=== PATIENT | female | born 1945 | race Caucasian/White ===

== ENCOUNTER 2019-12-13 17:54 | Emergency (ER) | payer MEDICARE, BC ==
[2019-12-13 18:12] VITALS: BP 143/89; PULSE 107
[2019-12-13] MEDS ORDERED: Lidocaine 1% 30 ML SDV INJECT ONE (18:12)
[2019-12-13] MEDS ORDERED: Bacitracin Oint 1 GM U/D Packet TOP ONE ×2 (18:12→19:10)
[2019-12-13] MEDS ORDERED: Diphtheria,Pertussis(Acell),Tetanus Vaccine 0.5 ML SDV IM ONE (18:13)
--- NOTE | 2019-12-13 18:20 | EDM.PDOC ---
ED HPI GENERAL MEDICAL PROBLEM - General Chief Complaint: Bite:Animal, Insect Stated Complaint: DOG ATTACKED LEFT LEFT CALF AND ANKLE Time Seen by Provider: 12/13/19 18:10 Source of Information: Reports: Patient, RN, RN Notes Reviewed History Limitations: Reports: No Limitations - History of Present Illness INITIAL COMMENTS - FREE TEXT/NARRATIVE: Patient presents to ER with complaint of laceration from dog bite to the left lower leg. Patient states she was mowing her yard in her own yard and the neighbors dog attacked her, unprovoked. Neighbor states the dog is up-to-date on its rabies vaccinations. Patient states she is probably not up-to-date on her tetanus vaccination. Patient has 2 lacerations to the inner left calf, and a puncture and laceration to the outer left calf. Onset: Today, Sudden Right Lower Leg Pain Score (Numeric/FACES): 5 - Related Data Allergies Allergy/AdvReac Type Severity Reaction Status Date / Time clarithromycin Allergy Other Verified 12/13/19 18:12 diphenhydramine Allergy Other Verified 12/13/19 18:12 pseudoephedrine Allergy Other Verified 12/13/19 18:12 [id number] Allergy Other Uncoded 12/13/19 18:12 Home Meds: Home Meds Albuterol [Proair HFA] 8.5 gm IH Q6HR PRN 07/06/14 [History] Ibuprofen 600 mg PO Q6HR PRN 07/06/14 [History] Levothyroxine 125 mcg PO DAILY 07/06/14 [History] Triamcinolone Acetonide [Triamcinolone Acetonide 0.5% Oint] 15 gm TOP DAILY 07/06/14 [History] amLODIPine/Benazepril [Lotrel 5-20 MG] 1 tab PO DAILY 07/06/14 [History] Social & Family History - Tobacco Use Smoking Status *Q: Never Smoker Second Hand Smoke Exposure: No - Recreational Drug Use Recreational Drug Use: No ED ROS GENERAL - Review of Systems Review Of Systems: Comprehensive ROS is negative, except as noted in HPI. ED EXAM, ANIMAL BITE - Physical Exam Exam: See Below Exam Limited By: No Limitations General Appearance: Alert, WD/WN, Anxious, Mild Distress Eye Exam: Bilateral Eye: EOMI, Normal Inspection Ears: Normal External Exam, Hearing Grossly Normal Nose: Normal Inspection Throat/Mouth: Normal Inspection, Normal Voice, No Airway Compromise Head: Atraumatic, Normocephalic Neck: Normal Inspection, Supple, Non-Tender, Full Range of Motion Respiratory/Chest: No Respiratory Distress, Lungs Clear, Normal Breath Sounds, No Accessory Muscle Use, Chest Non-Tender Cardiovascular: Normal Peripheral Pulses, Regular Rate, Rhythm, No Edema, No Gallop, No JVD, No Murmur, No Rub GI/Abdominal: Normal Bowel Sounds, Soft, Non-Tender (Female) Exam: Deferred Rectal (Female) Exam: Deferred Back Exam: Normal Inspection, Full Range of Motion, NT Extremities: Normal Inspection, Normal Range of Motion, Non-Tender, Normal Capillary Refill, No Pedal Edema Neurological: Alert, Oriented, CN II-XII Intact, Normal Cognition, Normal Gait, Normal Reflexes, No Motor/Sensory Deficits Psychiatric: Normal Affect, Normal Mood, Anxious Skin Exam: Other (lacerations and puncture wounds to the left inner and outer calf; Left lower lateral calf 5.5cm; Below that 3.5cm; Lateral ankle area 1cm; Left medial calf 6cm superficial laceration with 1cm area needing suture; Left medial calf 1cm puncutre; Left medial ankle 1.5cm puncture needing suture; small puncture to inner ankle not needing suture. ) Lymphadenopathy: Bilateral: No Adenopathy Lymphatic: No Adenopathy ED ANIMAL BITE PROCEDURES - Laceration/Wound Repair Left Lower Leg Lac/Wound Length In cm: 5.5 Appearance: Subcutaneous Distal NVT: Neuro & Vascular Intact Anesthetic Type: Local Local Anesthesia - Lidocaine (Xylocaine): 1% Plain Local Anesthetic Volume: 5cc Skin Prep: Chlorhexidine (Hibiciens) Exploration/Debridement/Repair: Wound Explored, In a Bloodless Field, Explored to Base, No Foreign Material Found Closed With: Sutures Suture Size: 4-0 # of Sutures: 7 Suture Type: Nylon, Interrupted Drain Placement: No Sterile Dressing Applied: Provider Tetanus Status Addressed: Yes Complications: No Left Lower Lateral Leg Lac/Wound Length In cm: 3.5 Appearance: Subcutaneous Anesthetic Type: Local Local Anesthesia - Lidocaine (Xylocaine): 1% Plain Local Anesthetic Volume: 4cc Skin Prep: Chlorhexidine (Hibiciens) Exploration/Debridement/Repair: Wound Explored, In a Bloodless Field, Explored to Base, No Foreign Material Found Closed With: Sutures Suture Size: 4-0 # of Sutures: 5 Suture Type: Nylon, Interrupted Drain Placement: No Sterile Dressing Applied: Provider Tetanus Status Addressed: Yes Complications: No Left Lower Side Ankle Lac/Wound Length In cm: 1 Appearance: Subcutaneous Distal NVT: Neuro & Vascular Intact Anesthetic Type: Local Local Anesthesia - Lidocaine (Xylocaine): 1% Plain Local Anesthetic Volume: 2cc Skin Prep: Chlorhexidine (Hibiciens) Exploration/Debridement/Repair: Wound Explored, In a Bloodless Field, Explored to Base, No Foreign Material Found Closed With: Sutures Suture Size: 4-0 # of Sutures: 2 Suture Type: Nylon, Interrupted Drain Placement: No Sterile Dressing Applied: Provider Tetanus Status Addressed: Yes Complications: No Left Lower Medial Leg Lac/Wound Length In cm: 1 Appearance: Subcutaneous Anesthetic Type: Local Local Anesthesia - Lidocaine (Xylocaine): 1% Plain Local Anesthetic Volume: 2cc Skin Prep: Chlorhexidine (Hibiciens) Exploration/Debridement/Repair: Wound Explored, In a Bloodless Field, Explored to Base, No Foreign Material Found Suture Size: 4-0 # of Sutures: 2 Suture Type: Nylon, Interrupted Drain Placement: No Sterile Dressing Applied: Provider Tetanus Status Addressed: Yes Complications: No Left Lower Side Leg Lac/Wound Length In cm: 1 Appearance: Subcutaneous Distal NVT: Neuro & Vascular Intact Anesthetic Type: Digital Local Anesthesia - Lidocaine (Xylocaine): 1% Plain Local Anesthetic Volume: 2cc Skin Prep: Chlorhexidine (Hibiciens) Exploration/Debridement/Repair: Wound Explored, In a Bloodless Field, Explored to Base, No Foreign Material Found Closed With: Sutures Suture Size: 4-0 # of Sutures: 1 Drain Placement: No Sterile Dressing Applied: Provider Tetanus Status Addressed: Yes Complications: No Left Lower Medial Ankle Lac/Wound Length In cm: 1.5 Appearance: Subcutaneous Distal NVT: Neuro & Vascular Intact Anesthetic Type: Local Local Anesthesia - Lidocaine (Xylocaine): 1% Plain Local Anesthetic Volume: 2cc Skin Prep: Chlorhexidine (Hibiciens) Exploration/Debridement/Repair: Wound Explored, In a Bloodless Field, Explored to Base, No Foreign Material Found Closed With: Sutures Suture Size: 4-0 # of Sutures: 2 Suture Type: Nylon, Interrupted Drain Placement: No Sterile Dressing Applied: Provider Tetanus Status Addressed: Yes Complications: No Course - Vital Signs Last Recorded V/S: Last Vital Signs Temp 97.7 F 12/13/19 18:07 Pulse 107 H 12/13/19 18:07 Resp 18 12/13/19 18:07 BP 143/89 H 12/13/19 18:07 Pulse Ox 93 L 12/13/19 18:07 - Orders/Labs/Meds Orders: Active Orders 24 hr Category Date Time Status Vaccines to be Administered [RC] PER UNIT ROUTINE Care 12/13/19 18:13 Active Meds: Medications Discontinued Medications Generic Name Dose Route Start Last Admin Trade Name Alessandra PRN Reason Stop Dose Admin Bacitracin 3 dose 12/13/19 18:12 12/13/19 18:24 Bacitracin Oint 1 Gm TOP 12/13/19 18:13 3 dose ONETIME ONE Administration Bacitracin 1 dose 12/13/19 19:10 12/13/19 19:15 Bacitracin Oint 1 Gm TOP 12/13/19 19:11 1 dose ONETIME ONE Administration Diphtheria/Tetanus/Acell Pertussis 0.5 ml 12/13/19 18:13 12/13/19 18:23 Adacel IM 12/13/19 18:14 0.5 ml .ONCE ONE Administration Lidocaine HCl 30 ml 12/13/19 18:12 12/13/19 18:23 Xylocaine-Mpf 1% INJECT 12/13/19 18:13 30 ml ONETIME ONE Administration - Re-Assessments/Exams Free Text/Narrative Re-Assessment/Exam: 12/13/19 19:24 [employer] officer here to visit with the patient. Departure - Departure Time of Disposition: 19:16 Disposition: Home, Self-Care 01 Condition: Fair Clinical Impression: Laceration, Puncture wound Dog bite Qualifiers: Encounter type: initial encounter Qualified Code(s): W54.0XXA - Bitten by dog, initial encounter - Discharge Information *PRESCRIPTION DRUG MONITORING PROGRAM REVIEWED*: No *COPY OF PRESCRIPTION DRUG MONITORING REPORT IN PATIENT GEORGE: No Instructions: Animal Bite, Adult, [id number], Puncture Wound, [id number], Laceration Care, Adult, [id number], Sutures, Mauro, or Adhesive Wound Closure, [id number] Forms: ED Department Discharge Additional Instructions: Keep area clean and dry Monitor for signs of infection i.e. warmth, redness, drainage, fever or chills Follow-up with your primary care provider in 7 to 10 days for suture removal Sepsis Event Note (ED) - Evaluation Sepsis Screening Result: No Definite Risk - Focused Exam Vital Signs: Vital Signs Temp Pulse Resp BP Pulse Ox 12/13/19 18:07 97.7 F 107 H 18 143/89 H 93 L - My Orders Last 24 Hours: My Active Orders 12/13/19 18:13 Vaccines to be Administered [RC] PER UNIT ROUTINE - Assessment/Plan Last 24 Hours: My Active Orders 12/13/19 18:13 Vaccines to be Administered [RC] PER UNIT ROUTINE
== END 2019-12-13 19:19 | disposition home or self-care (01) ==
LOC: DL.ED 17:54
DX: S91.052A Open bite, left ankle, initial encounter (principal); Z23 Encounter for immunization; Z88.1 Allergy status to other antibiotic agents; Z88.8 Allergy status to other drugs, medicaments and biological substances; Z79.899 Other long term (current) drug therapy; W54.0XXA Bitten by dog, initial encounter; Y92.096 Garden or yard of other non-institutional residence as the place of occurrence of the external cause
CPT/HCPCS: 12005; 90471; 90715; 99283; J2001

== ENCOUNTER 2019-12-20 15:00 | Emergency (ER) | payer MEDICARE, BC ==
[2019-12-20 15:23] VITALS: BP 151/91; PULSE 78
[2019-12-20] MEDS ORDERED: Levofloxacin 500 MG Tab PO ONE (15:49)
--- NOTE | 2019-12-20 16:11 | EDM.PDOC ---
Scribed by Missy Sanchez 12/20/19 1611 for Rolanda Sanchez MD ED HPI GENERAL MEDICAL PROBLEM - General Chief Complaint: Skin Complaint Stated Complaint: FOLLOW TO A DOG BITE, LEFT LEG Time Seen by Provider: 12/20/19 15:36 Source of Information: Reports: Patient, RN, RN Notes Reviewed History Limitations: Reports: No Limitations - History of Present Illness INITIAL COMMENTS - FREE TEXT/NARRATIVE: Patient presents to ED by POV stating she had a dog bite last week and had 19 stitches. She was not put on antibiotics originally. On Saturday she started having swelling, worse on Saturday and Saturday she went to clinic and got antibiotics and pain medication of Keflex and Clindamycin. On Saturday she was better so she showered. On Saturday she noticed drainage and dehiscence. Redness better but drainage. Onset: Gradual Duration: Getting Worse Location: Reports: Lower Extremity, Left Quality: Reports: Ache Severity: Moderate Improves with: Reports: None Worsens with: Reports: None Associated Symptoms: Reports: No Other Symptoms Left Lower Leg Pain Score (Numeric/FACES): 8 - Related Data Allergies Allergy/AdvReac Type Severity Reaction Status Date / Time clarithromycin Allergy Other Verified 12/20/19 15:23 diphenhydramine Allergy Other Verified 12/20/19 15:23 pseudoephedrine Allergy Other Verified 12/20/19 15:23 [id number] Allergy Other Uncoded 12/13/19 18:12 Home Meds: Home Meds Albuterol [Proair HFA] 8.5 gm IH Q6HR PRN 07/06/14 [History] Ibuprofen 600 mg PO Q6HR PRN 07/06/14 [History] Levothyroxine 125 mcg PO DAILY 07/06/14 [History] Triamcinolone Acetonide [Triamcinolone Acetonide 0.5% Oint] 15 gm TOP DAILY 06/20 12/01 [History] amLODIPine/Benazepril [Lotrel 5-20 MG] 1 tab PO DAILY 07/06/14 [History] Clindamycin HCl 300 mg PO QID 12/20/19 [History] cephALEXin [Cephalexin] 500 mg PO DAILY 12/20/19 [History] traMADol HCl [Tramadol HCl] 25 mg PO Q8H PRN 12/20/19 [History] Past Medical History Cardiovascular History: Reports: Hypertension Oncologic (Cancer) History: Reports: Renal, Thyroid - Past Surgical History Endocrine Surgical History: Reports: Thyroidectomy Oncologic Surgical History: Reports: Other (See Below) Other Oncologic Surgeries/Procedures: thyroidectomy, nephrectomy Social & Family History - Tobacco Use Smoking Status *Q: Never Smoker - Recreational Drug Use Recreational Drug Use: No ED ROS GENERAL - Review of Systems Review Of Systems: Comprehensive ROS is negative, except as noted in HPI. ED EXAM, SKIN/RASH Exam: See Below Exam Limited By: No Limitations General Appearance: Alert, WD/WN, No Apparent Distress Head: Atraumatic, Normocephalic Neck: Normal Inspection Respiratory/Chest: No Respiratory Distress, Lungs Clear, Normal Breath Sounds, No Accessory Muscle Use, Chest Non-Tender Cardiovascular: Normal Peripheral Pulses, Regular Rate, Rhythm, No Edema, No Gallop, No JVD, No Murmur, No Rub Extremities: Other (left extremity edema) Neurological: Alert, Oriented, CN II-XII Intact, Normal Cognition, Normal Gait, Normal Reflexes, No Motor/Sensory Deficits Psychiatric: Normal Affect, Normal Mood Skin: Other (dog bite with mild erythema and warmth. Wound dehiscence proximal innfer left leg. ) Course - Vital Signs Last Recorded V/S: Last Vital Signs Temp 97.8 F 12/20/19 15:20 Pulse 78 12/20/19 15:20 Resp 16 12/20/19 15:20 BP 151/91 H 12/20/19 15:20 Pulse Ox 99 12/20/19 15:20 - Orders/Labs/Meds Meds: Medications Discontinued Medications Generic Name Dose Route Start Last Admin Trade Name Alessandra PRN Reason Stop Dose Admin Levofloxacin 500 mg 12/20/19 15:49 Levaquin PO 12/20/19 15:50 ONETIME ONE - Re-Assessments/Exams Free Text/Narrative Re-Assessment/Exam: The wound was cleaned and removed bad stitches. Steri-Strip was applied after antibiotics cream. 12/20/19 16:10 Departure - Departure Time of Disposition: 16:00 Disposition: Home, Self-Care 01 Condition: Good Clinical Impression: Wound dehiscence Dog bite of left lower leg with infection Qualifiers: Encounter type: sequela Qualified Code(s): S81.852S - Open bite, left lower leg, sequela; L08.9 - Local infection of the skin and subcutaneous tissue, unspecified; W54.0XXS - Bitten by dog, sequela - Discharge Information *PRESCRIPTION DRUG MONITORING PROGRAM REVIEWED*: Not Applicable *COPY OF PRESCRIPTION DRUG MONITORING REPORT IN PATIENT GEORGE: Not Applicable Instructions: Animal Bite, Adult, [id number], Wound Dehiscence, [id number] Forms: ED Department Discharge Additional Instructions: RX: Levaquin. Follow up with primary care doctor tomorrow as previously scheduled. Sepsis Event Note (ED) - Evaluation Sepsis Screening Result: No Definite Risk - Focused Exam Vital Signs: Vital Signs Temp Pulse Resp BP Pulse Ox 12/20/19 15:20 97.8 F 78 16 151/91 H 99 I have read and agree with the documentation that has been completed regarding this visit. By signing this record, I attest that the documentation was completed in my physical presence and is an accurate record of the encounter.
== END 2019-12-20 16:18 | disposition home or self-care (01) ==
LOC: DL.ED 15:00
DX: T81.41XA Infection following a procedure, superficial incisional surgical site, initial encounter (principal); T81.30XA Disruption of wound, unspecified, initial encounter; I10 Essential (primary) hypertension; Z88.1 Allergy status to other antibiotic agents; Z88.8 Allergy status to other drugs, medicaments and biological substances; Z98.890 Other specified postprocedural states; W54.0XXS Bitten by dog, sequela
CPT/HCPCS: 99282; A9270

== ENCOUNTER 2020-02-13 11:48 | Emergency (ER) | payer MEDICARE, BC ==
[2020-02-13 12:58] VITALS: BP 144/83; PULSE 86
== END 2020-02-13 13:34 | disposition left against medical advice (07) ==
LOC: DL.ED 11:48
DX: Z53.21 Procedure and treatment not carried out due to patient leaving prior to being seen by health care provider (principal)

== ENCOUNTER 2020-09-03 15:01 | Emergency (ER) | payer MEDICARE, BC ==
[2020-09-03] MEDS ORDERED: Amoxicillin/Clavulanate K 875-125 MG Tab PO ONE (15:22)
[2020-09-03] MEDS ORDERED: Mupirocin Oint 22 GM Tube TOP ONE (15:23)
--- NOTE | 2020-09-03 15:29 | EDM.PDOC ---
ED HPI GENERAL MEDICAL PROBLEM - General Chief Complaint: Bite:Animal, Insect Stated Complaint: RIGHT HAND AND RIGHT LEG LACERATIONS FROM CAT Time Seen by Provider: 09/03/20 15:05 Source of Information: Reports: Patient, RN History Limitations: Reports: No Limitations - History of Present Illness INITIAL COMMENTS - FREE TEXT/NARRATIVE: ED with c/o cat bites to left hand and left leg from neighbor cat. States trying to break up fight between her cat and neighbors cat, bot gurvinder cats. States neighbor cat probably has been vaccinated. Has had other altercations with cat attempting to fight her cat. Prior hx of skin infection from dog bite last year. Right Hand Pain Score (Numeric/FACES): 7 - Related Data Allergies Allergy/AdvReac Type Severity Reaction Status Date / Time clarithromycin Allergy Other Verified 09/03/20 15:17 diphenhydramine Allergy Other Verified 09/03/20 15:17 pseudoephedrine Allergy Other Verified 09/03/20 15:17 bee bites Allergy Anaphylactic Uncoded 09/03/20 15:17 Shock [id number]-[id number] Allergy Other Uncoded 09/03/20 15:17 Home Meds: Home Meds Ibuprofen 600 mg PO Q6HR PRN 07/06/14 [History] Levothyroxine 125 mcg PO DAILY 07/06/14 [History] Triamcinolone Acetonide [Triamcinolone Acetonide 0.5% Oint] 15 gm TOP DAILY 07/06/14 [History] amLODIPine/Benazepril [Lotrel 5-20 MG] 1 tab PO DAILY 07/06/14 [History] Past Medical History HEENT History: Reports: Impaired Vision Other HEENT History: wears glasses Cardiovascular History: Reports: Hypertension Respiratory History: Reports: Bronchitis, Recurrent, Pneumonia, Recurrent Gastrointestinal History: Reports: None Genitourinary History: Reports: None Other Genitourinary History: only has one kidney [employer] History: Reports: None Musculoskeletal History: Reports: None Neurological History: Reports: None Psychiatric History: Reports: None Endocrine/Metabolic History: Reports: Hypoparathyroidism Hematologic History: Reports: None Immunologic History: Reports: None Oncologic (Cancer) History: Reports: Renal, Thyroid Dermatologic History: Reports: None - Infectious Disease History Infectious Disease History: Reports: Other (See Below) Other Infectious Disease History: has no idea - Past Surgical History Head Surgeries/Procedures: Reports: None Endocrine Surgical History: Reports: Thyroidectomy Oncologic Surgical History: Reports: Other (See Below) Other Oncologic Surgeries/Procedures: thyroidectomy, nephrectomy Social & Family History - Tobacco Use Tobacco Use Status *Q: Never Tobacco User Second Hand Smoke Exposure: No - Caffeine Use Caffeine Use: Reports: Coffee, Soda - Recreational Drug Use Recreational Drug Use: No ED ROS GENERAL - Review of Systems Review Of Systems: Comprehensive ROS is negative, except as noted in HPI. ED EXAM, ANIMAL BITE - Physical Exam Exam: See Below Exam Limited By: No Limitations General Appearance: Alert, Anxious, Mild Distress Eye Exam: Bilateral Eye: EOMI Ears: Normal External Exam, Hearing Grossly Normal Throat/Mouth: Normal Inspection Head: Atraumatic, Normocephalic Neck: Normal Inspection, Full Range of Motion Respiratory/Chest: No Respiratory Distress, Normal Breath Sounds Cardiovascular: Normal Peripheral Pulses, Regular Rate, Rhythm GI/Abdominal: Normal Bowel Sounds Extremities: Other (2 deep puncture wounds lateral right mid calk with 4cm superficial horizontal scratches to calf) Neurological: Alert, Oriented Psychiatric: Normal Affect, Normal Mood Skin Exam: Other (ppunncture wounds web space 3rd and 4th fingers, vshape skin tear dorsal left hand.5x.5 , multiple scrtches superficail to left hand wrist. and lower ankle) Course - Re-Assessments/Exams Free Text/Narrative Re-Assessment/Exam: 09/03/20 15:41 Wounds cleansed photos and dressed per RN. Departure - Departure Time of Disposition: 15:25 Disposition: Home, Self-Care 01 Condition: Good Clinical Impression: Cat bite Qualifiers: Encounter type: initial encounter Qualified Code(s): W55.01XA - Bitten by cat, initial encounter - Discharge Information *PRESCRIPTION DRUG MONITORING PROGRAM REVIEWED*: No *COPY OF PRESCRIPTION DRUG MONITORING REPORT IN PATIENT GEORGE: No Instructions: Animal Bite, Adult, [id number] Additional Instructions: augmentin 500mg/125 one twice daily for 10 days Clinic recheck on Saturday Mupirocin ointment to wounds 3 times daily wash wounds soap and water twice daily cover with bandage alternate tylenol and ibuprofen every 4 hours as needed for discomfort. Urgent follow up if increased redness drainage swelling of hand or leg quarantine cat if possible if unable to get vaccination history Follow up with law enforcement Sepsis Event Note (ED) - Evaluation Sepsis Screening Result: No Definite Risk
== END 2020-09-03 15:39 | disposition home or self-care (01) ==
LOC: DL.ED 15:01
DX: S61.452A Open bite of left hand, initial encounter (principal); S81.851A Open bite, right lower leg, initial encounter; S60.872A Other superficial bite of left wrist, initial encounter; I10 Essential (primary) hypertension; E20.9 Hypoparathyroidism, unspecified; Z79.899 Other long term (current) drug therapy; Z88.1 Allergy status to other antibiotic agents; Z88.8 Allergy status to other drugs, medicaments and biological substances; Z91.030 Bee allergy status; Z88.6 Allergy status to analgesic agent; W55.01XA Bitten by cat, initial encounter
CPT/HCPCS: 99283; A9270-GY

== ENCOUNTER 2021-01-19 07:10 | Emergency (ER) | payer MEDICARE, BC ==
[2021-01-19] MEDS ORDERED: Sodium Chloride 0.9% 10 ML Syringe FLUSH PRN (07:34)
[2021-01-19] MEDS ORDERED: Aspirin 81 MG Tab.Chew PO ONE (07:34)
[2021-01-19 07:35] VITALS: BP 165/91; PULSE 97
--- NOTE | 2021-01-19 07:37 | EDM.PDOC ---
<Ramiro Motta - Last Filed: 01/19/21 08:15> ED HPI GENERAL MEDICAL PROBLEM - General Chief Complaint: Chest Pain Stated Complaint: LEFT SHOULDER/ARM PAIN, TROUBLE BREATHING Time Seen by Provider: 01/19/21 07:32 Chest Pain Score (Numeric/FACES): 6 - Related Data Allergies Allergy/AdvReac Type Severity Reaction Status Date / Time clarithromycin Allergy Other Verified 09/03/20 15:17 diphenhydramine Allergy Other Verified 09/03/20 15:17 pseudoephedrine Allergy Other Verified 09/03/20 15:17 bee bites Allergy Anaphylactic Uncoded 09/03/20 15:17 Shock lsckkizpfkiv-bkjjqsf-ojezqwec Allergy Other Uncoded 09/03/20 15:17 Home Meds: Home Meds Ibuprofen 600 mg PO Q6HR PRN 07/06/14 [History] Levothyroxine 125 mcg PO DAILY 07/06/14 [History] Triamcinolone Acetonide [Triamcinolone Acetonide 0.5% Oint] 15 gm TOP DAILY 07/06/14 [History] amLODIPine/Benazepril [Lotrel 5-20 MG] 1 tab PO DAILY 07/06/14 [History] #1 Interpretation EKG Date: 01/19/21 Time: 07:35 Rhythm: Other (SR) Rate (Beats/Min): 95 [place]: Normal P-Wave: Present QRS: Normal ST-T: Normal QT: Normal Comparison: NA - No Prior EKG Course - Radiology Interpretation Free Text/Narrative:: [facility] Final Radiology Report Call: [phone] assistance Online chat: [email or web address] Name: SRINIVASAN JOHNSON Age: 76Years F Date: 01/19/2021 SSN: -- : [id number] Study: CR CHEST 1V FRONTAL Requesting Physician: RAMIRO MOTTA Images: 1 Addl Studies: Provided Clinical History: chest pain Contrast: Contrast Medium: Contrast Amount: Contrast Method: CONFIDENTIALITY STATEMENT This report is intended only for use by the referring physician, and only in accordance with law. If you received this in error, call [phone]. Page 1 of 1 PROCEDURE INFORMATION: Exam: XR Chest Exam date and time: 01/19/2021 7:39 AM Age: 76 years old Clinical indication: Chest wall pain; Additional info: Chest pain TECHNIQUE: Imaging protocol: XR of the chest. Views: 1 view. COMPARISON: No relevant prior studies available. FINDINGS: Lungs: Mid inspiratory effort with resultant low lung volumes. No confluent infiltrates are visualized within the pulmonary parenchyma. Pleural spaces: Unremarkable. No pleural effusion. No pneumothorax. Heart/Mediastinum: The heart is enlarged. Vasculature: The aorta demonstrates moderate atherosclerotic calcification and ectasia. Bones/joints: Unremarkable. Intraperitoneal space: Multiple surgical clips in the right upper quadrant of the abdomen IMPRESSION: No acute findings. Thank you for allowing us to participate in the care of your patient. Dictated and Authenticated by: Satinder Maxwell MD 01/19/2021 7:53 AM Central Time ([place] & [place]) Departure - Departure Disposition: Home, Self-Care 01 Clinical Impression: Gastroesophageal reflux disease Qualifiers: Esophagitis presence: without esophagitis Qualified Code(s): K21.9 - Gastro- esophageal reflux disease without esophagitis Forms: ED Department Discharge Additional Instructions: Use your omeprazole to control your acid reflux. If your develop any new symptoms or concerns contact your [facility] care facility or return to the ER. <Alonzo Candelaria - Last Filed: 01/19/21 09:20> ED HPI GENERAL MEDICAL PROBLEM - General Source of Information: Reports: Patient History Limitations: Reports: No Limitations - History of Present Illness INITIAL COMMENTS - FREE TEXT/NARRATIVE: 76 y/o F c/o 4/10 CP since 3 am this morning. Pn is sharp in [facility] chest and radiates into jaw and left arm. No heart hx. Pt has had a dry cough for several months but feels this pain is unrelated. Hx of acid reflux and wonders if her pain may be related to that. Denies SOB, nausea, fever, chills, trauma. Has not taken anything for the pain and has not been able to sleep. Onset: Today, Sudden Duration: Hour(s): Location: Reports: Chest Quality: Reports: Sharp Severity: Mild Improves with: Reports: None Worsens with: Reports: None Past Medical History HEENT History: Reports: Impaired Vision Other HEENT History: wears glasses Cardiovascular History: Reports: Hypertension Respiratory History: Reports: Bronchitis, Recurrent, Pneumonia, Recurrent Gastrointestinal History: Reports: None Genitourinary History: Reports: None Other Genitourinary History: only has one kidney [employer] MANAGER History: Reports: None Musculoskeletal History: Reports: None Neurological History: Reports: None Psychiatric History: Reports: None Endocrine/Metabolic History: Reports: Hypoparathyroidism Hematologic History: Reports: None Immunologic History: Reports: None Oncologic (Cancer) History: Reports: Renal, Thyroid Dermatologic History: Reports: None - Infectious Disease History Infectious Disease History: Reports: Other (See Below) Other Infectious Disease History: has no idea - Past Surgical History Head Surgeries/Procedures: Reports: None Endocrine Surgical History: Reports: Thyroidectomy Oncologic Surgical History: Reports: Other (See Below) Other Oncologic Surgeries/Procedures: thyroidectomy, nephrectomy Social & Family History - Caffeine Use Caffeine Use: Reports: Coffee, Soda ED ROS GENERAL - Review of Systems Review Of Systems: Comprehensive ROS is negative, except as noted in HPI. ED EXAM, GENERAL - Physical Exam Exam: See Below Exam Limited By: No Limitations General Appearance: Alert, No Apparent Distress Eye Exam: Bilateral Eye: PERRL Throat/Mouth: Normal Inspection, Normal Lips, Normal Teeth, Normal Gums, Normal Oropharynx, Normal Voice, No Airway Compromise Head: Atraumatic, Normocephalic Neck: Normal Inspection, Supple, Non-Tender, Full Range of Motion Respiratory/Chest: No Respiratory Distress, Lungs Clear, Normal Breath Sounds, No Accessory Muscle Use, Chest Non-Tender Cardiovascular: Normal Peripheral Pulses, Regular Rate, Rhythm GI/Abdominal: Soft, Non-Tender (Female) Exam: Deferred Rectal (Female) Exam: Deferred Back Exam: Normal Inspection, Full Range of Motion Extremities: Normal Inspection, Normal Range of Motion, Non-Tender, Normal Capillary Refill, No Pedal Edema Neurological: Alert, Oriented, CN II-XII Intact, Normal Cognition, Normal Gait, Normal Reflexes, No Motor/Sensory Deficits Psychiatric: Normal Affect, Normal Mood Skin Exam: Warm, Dry, Intact Course - Vital Signs Last Recorded V/S: Last Vital Signs Temp 98.7 F 01/19/21 07:26 Pulse 97 01/19/21 07:26 Resp 16 01/19/21 07:26 BP 165/91 H 01/19/21 07:26 Pulse Ox 95 01/19/21 07:26 - Orders/Labs/Meds Orders: Active Orders 24 hr Category Date Time Status Peripheral IV Care [RC] . DIRECTED Care 01/19/21 07:34 Active Sodium Chloride 0.9% [Saline Flush] Med 01/19/21 07:34 Active 10 ml FLUSH ASDIRECTED PRN Peripheral IV Insertion Adult [OM.PC] Stat Oth 01/19/21 07:34 Ordered Medication Orders Sodium Chloride (Sodium Chloride 0.9% 10 Ml Syringe) 10 ml FLUSH ASDIRECTED PRN PRN Reason: Keep Vein Open Labs: Laboratory Tests 01/19/21 01/19/21 01/19/21 Range/Units 07:51 07:51 07:51 WBC 9.3 (5.0-10.0) 10^3/uL RBC 3.60 L (4.2-5.4) 10^6/uL Hgb 11.6 L (12.0-16.0) g/dL Hct 33.9 L (37.0-47.0) % MCV 94.2 (80-100) fL MCH 32.2 (27.0-34.0) pg MCHC 34.2 (33.0-35.0) g/dL Plt Count 237 (150-450) 10^3/uL Neut % (Auto) 74.1 (42.2-75.2) % Lymph % (Auto) 13.5 L (20.5-50.1) % [place] % (Auto) 12.2 H (2-8) % Eos % (Auto) 0.1 L (1.0-3.0) % Baso % (Auto) 0.1 (0.0-1.0) % PT 10.5 (9.0-12.0) SEC INR 1.0 (0.9-1.2) APTT 23.9 (22.0-34.0) SEC D-Dimer, Quantitative 495 H (0-400) ng/mL Sodium 138 (136-145) mmol/L Potassium 3.9 (3.5-5.1) mmol/L Chloride 103 (98-107) mmol/L Carbon Dioxide 25 (21-32) mmol/L Anion Gap 13.9 H (7-13) mEq/L BUN 17 (7-18) mg/dL Creatinine 0.81 (0.55-1.02) mg/dL Est Cr Clr Drug Dosing 49.43 mL/min Estimated GFR (MDRD) > 60 BUN/Creatinine Ratio 21.0 (No establ ref range) Glucose 157 H (70-99) mg/dL Calcium 8.6 (8.5-10.1) mg/dL Total Bilirubin 0.8 (0.2-1.0) mg/dL AST 15 (15-37) U/L ALT 29 (14-59) U/L Alkaline Phosphatase 81 (46-116) U/L Troponin I High Sens 6 (<=51) pg/mL B-Natriuretic Peptide 116 H (0-100) pg/ml Total Protein 6.8 (6.4-8.2) g/dL Albumin 3.2 L (3.4-5.0) g/dL Globulin 3.6 Albumin/Globulin Ratio 0.89 Amylase 41 (25-115) U/L Lipase 73 (73-393) U/L Meds: Medications Generic Name Dose Route Start Last Admin Trade Name Freq PRN Reason Stop Dose Admin Sodium Chloride 10 ml 01/19/21 07:34 Sodium Chloride 0.9% 10 Ml Syringe FLUSH ASDIRECTED PRN Keep Vein Open Discontinued Medications Generic Name Dose Route Start Last Admin Trade Name Freq PRN Reason Stop Dose Admin Al Hydroxide/Mg Hydroxide 30 ml 01/19/21 07:42 01/19/21 07:54 Gi Cocktail Oral Solution 30 Ml PO 01/19/21 07:43 30 ml ONETIME ONE Administration Aspirin 324 mg 01/19/21 07:34 01/19/21 07:52 Aspirin 81 Mg Tab.Chew PO 01/19/21 07:35 324 mg ONETIME ONE Administration - Re-Assessments/Exams Free Text/Narrative Re-Assessment/Exam: 01/19/21 09:16 On reassessment pts pain subsided after GI cocktail and she expresses complete resolution in pn. Given the normal labs and Ekg it is likely pts symptoms were due to acid reflux. Pt has low likelihood of acute cardiac ischemia. Pt states she has had acid reflux in the past and has omeprazole at home which she will begin taking. She declined Rx for Omeprazole Departure - Departure Time of Disposition: 09:19 Condition: Good Sepsis Event Note (ED) - Focused Exam Vital Signs: Vital Signs Temp Pulse Resp BP Pulse Ox 01/19/21 07:26 98.7 F 97 16 165/91 H 95
[2021-01-19] MEDS ORDERED: GI Cocktail Oral Solution 30 ML PO ONE (07:42)
--- NOTE | 2021-01-19 07:53 | CR ---
PROCEDURE INFORMATION: Exam: XR Chest Exam date and time: 01/19/2021 7:39 AM Age: 76 years old Clinical indication: Chest wall pain; Additional info: Chest pain TECHNIQUE: Imaging protocol: XR of the chest. Views: 1 view. COMPARISON: No relevant prior studies available. FINDINGS: Lungs: Mid inspiratory effort with resultant low lung volumes. No confluent infiltrates are visualized within the pulmonary parenchyma. Pleural spaces: Unremarkable. No pleural effusion. No pneumothorax. Heart/Mediastinum: The heart is enlarged. Vasculature: The aorta demonstrates moderate atherosclerotic calcification and ectasia. Bones/joints: Unremarkable. Intraperitoneal space: Multiple surgical clips in the right upper quadrant of the abdomen IMPRESSION: No acute findings.
[2021-01-19 08:18] LABS: ANION GAP 13.9 mEq/L (7-13); CHLORIDE,CL 103 mmol/L (98-107); PTT,PARTIAL THROMBOPLSTIN TIME 23.9 SEC (22.0-34.0); SODIUM,NA 138 mmol/L (136-145)
== END 2021-01-19 09:34 | disposition home or self-care (01) ==
LOC: DL.ED 07:10
DX: K21.9 Gastro-esophageal reflux disease without esophagitis (principal); I10 Essential (primary) hypertension; E03.9 Hypothyroidism, unspecified; Z91.030 Bee allergy status; Z88.8 Allergy status to other drugs, medicaments and biological substances; Z88.1 Allergy status to other antibiotic agents; Z79.899 Other long term (current) drug therapy
CPT/HCPCS: 36415; 71045; 80053; 82150; 83690; 83880; 84484; 85025; 85379; 85610; 85730; 93005; 99285; A9270

== ENCOUNTER 2021-05-09 02:03 | Emergency (ER) | payer MEDICARE, BC ==
[2021-05-09 02:14] VITALS: BP 105/64; PULSE 103
[2021-05-09] MEDS ORDERED: Sodium Chloride 0.9% 1,000 ML IV ONE (02:34)
[2021-05-09 03:04] LABS: ANION GAP 18.2 mEq/L (7-13)
[2021-05-09] MEDS ORDERED: Acetaminophen 325 MG Tab PO ONE (03:48)
[2021-05-09] MEDS ORDERED: cefTRIAXone 1 GM in Sodium Chloride 0.9% 50 ML IV ONE (04:11)
--- NOTE | 2021-05-09 05:43 | EDM.PDOC ---
ED HPI GENERAL MEDICAL PROBLEM - General Chief Complaint: ENT Problem Stated Complaint: RIGHT SIDE OF FACE SWELLED UP, EAR ACHE Time Seen by Provider: 05/09/21 02:10 Source of Information: Reports: Patient, RN History Limitations: Reports: No Limitations - History of Present Illness INITIAL COMMENTS - FREE TEXT/NARRATIVE: ED with c/o right ear pain and face swelling. No fever or chills. no difficulty swallowing, No relief discomfort with tylenol.Unable to sleep. Right Face/Facial Pain Score (Numeric/FACES): 6 - Related Data Allergies Allergy/AdvReac Type Severity Reaction Status Date / Time clarithromycin Allergy Other Verified 05/09/21 02:14 diphenhydramine Allergy Other Verified 05/09/21 02:14 pseudoephedrine Allergy Other Verified 05/09/21 02:14 bee bites Allergy Anaphylactic Uncoded 05/09/21 02:14 Shock zayisahtnhgz-ujpumej-mqhyairq Allergy Other Uncoded 05/09/21 02:14 Home Meds: Home Meds Levothyroxine 125 mcg PO DAILY 07/06/14 [History] amLODIPine/Benazepril [Lotrel 5-20 MG] 1 tab PO DAILY 07/06/14 [History] Past Medical History HEENT History: Reports: Impaired Vision Other HEENT History: wears glasses Cardiovascular History: Reports: Hypertension Respiratory History: Reports: Bronchitis, Recurrent, Pneumonia, Recurrent Gastrointestinal History: Reports: None Genitourinary History: Reports: None Other Genitourinary History: only has one kidney CELLAR HAND History: Reports: None Musculoskeletal History: Reports: None Neurological History: Reports: None Psychiatric History: Reports: None Endocrine/Metabolic History: Reports: Hypoparathyroidism Hematologic History: Reports: None Immunologic History: Reports: None Oncologic (Cancer) History: Reports: Renal, Thyroid Dermatologic History: Reports: None - Infectious Disease History Infectious Disease History: Reports: Novel Coronavirus Other Infectious Disease History: has no idea - Past Surgical History Head Surgeries/Procedures: Reports: None Endocrine Surgical History: Reports: Thyroidectomy Oncologic Surgical History: Reports: Other (See Below) Other Oncologic Surgeries/Procedures: thyroidectomy, nephrectomy Social & Family History - Tobacco Use Tobacco Use Status *Q: Never Tobacco User Second Hand Smoke Exposure: No - Caffeine Use Caffeine Use: Reports: Coffee, Soda - Recreational Drug Use Recreational Drug Use: No ED ROS ENT - Review of Systems Review Of Systems: Comprehensive ROS is negative, except as noted in HPI. ED EXAM, ENT - Physical Exam Exam: See Below Exam Limited By: No Limitations General Appearance: Alert, Mild Distress Eye Exam: Bilateral Eye: EOMI, PERRL Ears: Mastoid Swelling, Mastoid Tenderness, Canal Swelling, TM Obscured by Cerumen. No: Normal Canal Nose: Normal Inspection Mouth/Throat: Pharyngeal Erythema, Other (dry mucus membranes) Head: Facial Swelling (right ceek ) Neck: Full Range of Motion, Lymphadenopathy (R) Respiratory/Chest: No Respiratory Distress, Decreased Breath Sounds (bases ). No: Rhonchi, Wheezing Cardiovascular: Normal Peripheral Pulses, Regular Rate, Rhythm GI/Abdominal: Normal Bowel Sounds, Soft Extremities: Normal Inspection Neurological: Alert, Oriented, Normal Cognition Skin: Warm, Dry, Intact, Normal Color Course - Vital Signs Last Recorded V/S: Last Vital Signs Temp 99 F 05/09/21 02:07 Pulse 103 H 05/09/21 02:07 Resp 18 05/09/21 02:07 BP 105/64 05/09/21 02:07 Pulse Ox 88 L 05/09/21 02:07 - Orders/Labs/Meds Labs: Laboratory Tests 05/09/21 05/09/21 05/09/21 Range/Units 02:20 02:40 02:40 WBC 11.4 H (5.0-10.0) 10^3/uL RBC 4.37 (4.2-5.4) 10^6/uL Hgb 13.8 D (12.0-16.0) g/dL Hct 39.7 (37.0-47.0) % MCV 90.8 D (80-100) fL MCH 31.6 (27.0-34.0) pg MCHC 34.8 (33.0-35.0) g/dL Plt Count 224 (150-450) 10^3/uL Neut % (Auto) 86.8 H (42.2-75.2) % Lymph % (Auto) 6.2 L (20.5-50.1) % [place] % (Auto) 6.9 (2-8) % Eos % (Auto) 0.1 L (1.0-3.0) % Baso % (Auto) 0.0 (0.0-1.0) % Add Manual Diff Yes Neutrophils % (Manual) 90 H (42-75) % Band Neutrophils % 2 % Lymphocytes % (Manual) 3 L (20-50) % Monocytes % (Manual) 5 (2-8) % Sodium 137 (136-145) mmol/L Potassium 3.2 L (3.5-5.1) mmol/L Chloride 100 (98-107) mmol/L Carbon Dioxide 22 (21-32) mmol/L Anion Gap 18.2 H (7-13) mEq/L BUN 41 H (7-18) mg/dL Creatinine 1.52 H (0.55-1.02) mg/dL Est Cr Clr Drug Dosing 26.34 mL/min Estimated GFR (MDRD) 33 Glucose 143 H (70-99) mg/dL Lactic Acid 1.9 (0.4-2.0) mmol/L Calcium 8.6 (8.5-10.1) mg/dL B-Natriuretic Peptide 119 H (0-100) pg/ml Meds: Medications Discontinued Medications Generic Name Dose Route Start Last Admin Trade Name Alessandra PRN Reason Stop Dose Admin Acetaminophen 650 mg 05/09/21 03:48 05/09/21 03:52 Acetaminophen 325 Mg Tab PO 05/09/21 03:49 650 mg NOW ONE Administration Sodium Chloride 1,000 mls @ 500 mls/hr 05/09/21 02:34 05/09/21 02:45 Normal Saline IV 05/09/21 04:33 500 mls/hr .BOLUS ONE Administration Ceftriaxone Sodium 1 gm/ 50 mls @ 100 mls/hr 05/09/21 04:11 05/09/21 04:27 Sodium Chloride IV 05/09/21 04:40 100 mls/hr ONETIME ONE Administration - Re-Assessments/Exams Free Text/Narrative Re-Assessment/Exam: 05/09/21 05:46 Patient states she needs to leave to go to work. No CT results yet. Patient instructed she would need to follow with PCP. Patient was provided with [facility] Rx for Augmentin due to potential mastoiditis Departure - Departure Time of Disposition: 05:49 Disposition: Against Medical Advice 07 Condition: Undetermined Clinical Impression: Pain in right ear, Swelling of right side of face, History of COVID-19 - Discharge Information *PRESCRIPTION DRUG MONITORING PROGRAM REVIEWED*: No *COPY OF PRESCRIPTION DRUG MONITORING REPORT IN PATIENT GEORGE: No Referrals: Sherice Dorado NP [Primary Care Provider] - Forms: ED Department Discharge Additional Instructions: ED with c/o right ear pain and right side of face swollen x 2 days , No fevers, Pain unable to sleep. Reports recent COVID, out of isolation 05/07. Denies breathing difficulty. Non smoker. Last Tylenol 1800.
--- NOTE | 2021-05-09 06:20 | CT ---
PROCEDURE INFORMATION: Exam: CT Head Without Contrast Exam date and time: 05/09/2021 3:13 AM Age: 76 years old Clinical indication: Other: Right ear pain swelling facial swelling pain; Patient HX: HX thyroid and kidney CA TECHNIQUE: Imaging protocol: Computed tomography of the head without contrast. Radiation optimization: All CT scans at this facility use at least one of these dose optimization techniques: automated exposure control; mA and/or kV adjustment per patient size (includes targeted exams where dose is matched to clinical indication); or iterative reconstruction. COMPARISON: No relevant prior studies available. FINDINGS: Brain: There is no acute intracranial hemorrhage. There is lucency in the cerebral white matter, likely microvascular disease although non-specific. Gagnon white differentiation is intact. There are no extra-axial fluid collections. No evidence of mass. There is no mass effect or midline shift. Cerebral ventricles: The ventricles and sulci are enlarged, consistent with volume loss / atrophy. No hydrocephalus. 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 Mastoid air cells: No significant mastoid effusion. Vasculature: There is vascular calcification. Bones/joints: Lucencies in skull appear to be mostly vascular bruise. Soft tissues: Unremarkable as visualized. Submandibular/Parotid glands: There prominent swelling of right parotid gland. Please see report of maxillofacial CT. Other findings: There is no evidence of vasogenic edema. IMPRESSION: 1. No evidence of acute intracranial abnormality. No evidence of acute infarction, hemorrhage, or intracranial mass. 2. Atrophy and microvascular disease. 3. Right parotid swelling and please see report of facial CT.
--- NOTE | 2021-05-09 07:35 | CT ---
PROCEDURE INFORMATION: Exam: CT Chest Without Contrast; Diagnostic Exam date and time: 05/09/2021 3:13 AM Age: 76 years old Clinical indication: Other: Hypoxia; Patient HX: HX thyroid and kidney CA; Additional info: Hypoxia, recent covid TECHNIQUE: Imaging protocol: Diagnostic computed tomography of the chest without contrast. Radiation optimization: All CT scans at this facility use at least one of these dose optimization techniques: automated exposure control; mA and/or kV adjustment per patient size (includes targeted exams where dose is matched to clinical indication); or iterative reconstruction. COMPARISON: CR Chest 1V Frontal 01/19/2021 7:39 AM FINDINGS: Limitations: Evaluation is somewhat limited by lack of IV contrast. Lungs: The lungs demonstrate moderate non rounded, peripheral predominant ground-glass opacity with mild areas of superimposed interstitial thickening. Mildly confluent airspace components are present in the left lower lobe and lingula. A few bilateral pulmonary nodules are present, measuring up to 5 mm in the right upper lobe (image 5:18), 6 mm in the right middle lobe (image 05:33), 4 mm in the right lower lobe (image 5:34) and 6 mm in the left upper lobe (image 05:23). Pleural spaces: Unremarkable. No pneumothorax. No pleural effusion. Heart: Coronary artery calcifications are noted. Aorta: The ascending aorta is mildly dilated, measuring up to 4.2 cm in caliber. This tapers to 2.9 cm at the arch, with descending thoracic aortic calibers of 3.1 cm at the level the main pulmonary artery, 3.7 cm at the level of the left atrium and 2.7 cm at the level of the diaphragmatic hiatus. Other arteries: Atherosclerotic vascular calcifications are noted. Lymph nodes: No gross pathologic lymphadenopathy. Pancreas: The pancreas is somewhat atrophic. Adrenal glands: There is nonspecific thickening of the left adrenal gland. Kidneys and ureters: There appears to have been right nephrectomy. The partially included left kidney contains cysts. Bones/joints: Degenerative changes involve the spine and shoulders. Sclerotic density in the T6 vertebral body is likely a bone island. Soft tissues: There is soft tissue swelling along the lower right neck, partially visualized. See separate facial bone CT report. IMPRESSION: 1. Moderate non rounded, peripheral predominant ground-glass opacities about the lungs with mild areas of superimposed interstitial thickening and mildly confluent airspace components in the left lower lobe and lingula. Commonly reported imaging features of COVID-19 pneumonia are present. Other processes such as influenza pneumonia and organizing pneumonia, as can be seen with drug toxicity and connective tissue disease, can cause a similar imaging pattern. (Reference: Sami) 2. Few bilateral pulmonary nodules bilaterally measuring up to 6 mm. For patients at low risk (minimal or absent history of smoking and of other known risk factors), recommend CT Chest at 3-6 months, then consider CT Chest at 18-24 months. For patients at high risk (history of smoking or of other known risk factors), recommend CT Chest at 3-6 months, then CT Chest at 18-24 months. (Reference: Jeremy) 3. Dilatation of the ascending aorta up to 4.2 cm and of the mid descending aorta up to 3.7 cm. Recommend clinical assessment and follow-up. COMMENTS: Consistent with the [employer]'s Incidental Findings Committee white paper (J Am Lino Radiol 2018): Any incidental renal lesion less than 1 cm or classified as too small to characterize, or any incidental cystic renal lesion characterized as simple-appearing, is likely benign. No follow-up imaging is recommended for these lesions per consensus recommendations based on imaging criteria. REFERENCES: 1. Sami Crockett, et al., Radiological Society of [place] Expert Consensus Statement on Reporting Chest CT Findings Related to COVID-19. Endorsed by the Society of Thoracic Radiology, the [employer], and RSNA. Published August 12, 2019. 2. Jeremy Voss et al. Guidelines for Management of Incidental Pulmonary Nodules Detected on CT Images: From the Fleischner Society 2017. Radiology. 2017;284(1):228-243.
--- NOTE | 2021-05-09 07:44 | CT ---
PROCEDURE INFORMATION: Exam: CT Maxillofacial Without Contrast Exam date and time: 05/09/2021 3:13 AM Age: 76 years old Clinical indication: Other: Right ear pain, right facial swelling; Patient HX: HX thyroid and kidney CA TECHNIQUE: Imaging protocol: Computed tomography images of the face without contrast. Radiation optimization: All CT scans at this facility use at least one of these dose optimization techniques: automated exposure control; mA and/or kV adjustment per patient size (includes targeted exams where dose is matched to clinical indication); or iterative reconstruction. COMPARISON: No relevant prior studies available. FINDINGS: Orbital cavity: Orbits are normal. Globes are unremarkable. Bones/joints: Mild degenerative changes in spine with no evidence of significant spinal stenosis. 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 The patient is edentulous. No significant sinus mucosal disease or air-fluid levels. Mastoid air cells: Mastoid air cells and middle ear cavities are well developed and well aerated. There are opacities in bilateral external auditory canals which may be cerumen which can be confirmed clinically. Soft tissues: See "Submandibular/Parotid glands" finding. Submandibular/Parotid glands: There is marked enlargement and edema of the right parotid gland consistent with parotitis. No evidence of intraglandular stones or stone in Stensen's duct. Edema extends into the adjacent soft tissues superficial to the parotid gland with fascial thickening. Edema surrounds and involves the right masseter muscle which is enlarged. The right sternocleidomastoid also shows surrounding edema and is mildly enlarged. This is consistent with myositis. Edema extends inferiorly and surrounds the right submandibular gland which is enlarged and edematous. Edema extends to involve the deep lobe of the parotid gland and there is edema in the adjacent parapharyngeal fat. There is no evidence of well-defined drainable abscess based on this noncontrast evaluation. There is a punctate calcification in inferior aspect left parotid gland. Vasculature: There is calcification at left greater than right carotid bifurcations. Oropharynx: There is a punctate calcification in the anterior left aspect of the tongue. There is no evidence of tonsillar enlargement or abscess. Larynx: There is no edema or thickening of epiglottis or aryepiglottic folds. Thyroid: There is a punctate foreign body density along the anterolateral aspect of thyroid cartilage which appears to correspond to surgical clips on localizing lateral view. IMPRESSION: Findings consistent with right parotitis with adjacent cellulitis and extension to involve adjacent submandibular gland which also appears inflamed. There is edema and enlargement with myositis involving masseter greater than sternocleidomastoid. No well-defined drainable abscess.
== END 2021-05-09 05:41 | disposition left against medical advice (07) ==
LOC: DL.ED 02:03
DX: H92.01 Otalgia, right ear (principal); R22.0 Localized swelling, mass and lump, head; I10 Essential (primary) hypertension; E20.9 Hypoparathyroidism, unspecified; Z86.16 Personal history of COVID-19; Z88.1 Allergy status to other antibiotic agents; Z88.8 Allergy status to other drugs, medicaments and biological substances; Z91.030 Bee allergy status; Z79.899 Other long term (current) drug therapy
CPT/HCPCS: 36415; 70450; 70486; 71250; 80048; 83605; 83880; 85025; 87040; 96365; 99284; A9270; J0696; J7030

== ENCOUNTER 2021-05-18 12:25 | Emergency (ER) | payer MEDICARE, BC | END 2021-05-18 12:35 | disposition left against medical advice (07) | LOC: DL.ED 12:25 | DX: Z53.21 Procedure and treatment not carried out due to patient leaving prior to being seen by health care provider (principal) ==

== ENCOUNTER 2021-05-18 20:27 | Emergency (ER) | payer MEDICARE, BC ==
[2021-05-18] MEDS ORDERED: Sodium Chloride 0.9% 10 ML Syringe FLUSH PRN (20:47)
[2021-05-18 20:53] VITALS: BP 136/88; PULSE 106
--- NOTE | 2021-05-18 21:12 | EDM.PDOC ---
ED HPI GENERAL MEDICAL PROBLEM - General Chief Complaint: Respiratory Problem Stated Complaint: POSSIBLE BLOOD CLOT Time Seen by Provider: 05/18/21 21:00 Source of Information: Reports: Patient History Limitations: Reports: No Limitations - History of Present Illness INITIAL COMMENTS - FREE TEXT/NARRATIVE: 76 y/o F c/o fatigue, sob with exertion, dry mouth since Saturday. Pt had covid weeks ago and finished quarantine on 05-07. She reports she had been feeling fine and had no sob until her symptoms developed on Saturday. Treated for parotitis on 05-09 this year. Was seen at the clinic yesterday and had labs and cxr done. Pt was diagnosed with PNA put on steriods and Ammox. Pt left and then was advised the she had an elevated d-dimer and that she needed a ct pe done. Pt came back for more labs this morning but had to leave for work before her CT could be done. Pt came back to the ER this afternoon but again left before being seen because it was very busy. She denies fever, cp, neck pain, back pain, abd pn, ext pain. - Related Data Allergies Allergy/AdvReac Type Severity Reaction Status Date / Time clarithromycin Allergy Other Verified 05/09/21 02:14 diphenhydramine Allergy Other Verified 05/09/21 02:14 pseudoephedrine Allergy Other Verified 05/09/21 02:14 bee bites Allergy Anaphylactic Uncoded 05/09/21 02:14 Shock [id number] Allergy Other Uncoded 05/09/21 02:14 Home Meds: Home Meds Levothyroxine 125 mcg PO DAILY 07/06/14 [History] amLODIPine/Benazepril [Lotrel 5-20 MG] 1 tab PO DAILY 07/06/14 [History] Past Medical History HEENT History: Reports: Impaired Vision Other HEENT History: wears glasses Cardiovascular History: Reports: Hypertension Respiratory History: Reports: Bronchitis, Recurrent, Pneumonia, Recurrent Gastrointestinal History: Reports: None Genitourinary History: Reports: None Other Genitourinary History: only has one kidney [employer]CH[employer]IAN History: Reports: None Musculoskeletal History: Reports: None Neurological History: Reports: None Psychiatric History: Reports: None Endocrine/Metabolic History: Reports: Hypoparathyroidism Hematologic History: Reports: None Immunologic History: Reports: None Oncologic (Cancer) History: Reports: Renal, Thyroid Dermatologic History: Reports: None - Infectious Disease History Infectious Disease History: Reports: Novel Coronavirus Other Infectious Disease History: has no idea - Past Surgical History Head Surgeries/Procedures: Reports: None Endocrine Surgical History: Reports: Thyroidectomy Oncologic Surgical History: Reports: Other (See Below) Other Oncologic Surgeries/Procedures: thyroidectomy, nephrectomy Social & Family History - Tobacco Use Tobacco Use Status *Q: Never Tobacco User - Caffeine Use Caffeine Use: Reports: Coffee, Soda ED ROS GENERAL - Review of Systems Review Of Systems: Comprehensive ROS is negative, except as noted in HPI. ED EXAM, GENERAL - Physical Exam Exam: See Below Exam Limited By: No Limitations General Appearance: Alert, No Apparent Distress, Lethargic Eye Exam: Bilateral Eye: PERRL Ears: Normal External Exam, Normal Canal, Hearing Grossly Normal, Normal TMs Nose: Normal Inspection, Normal Mucosa, No Blood Throat/Mouth: Other (tongue dry and furrowed) Head: Atraumatic, Normocephalic Neck: Normal Inspection, Supple, Non-Tender, Full Range of Motion, Lymphadenopathy (R) Respiratory/Chest: No Respiratory Distress, Lungs Clear, Normal Breath Sounds, No Accessory Muscle Use, Chest Non-Tender #1 Interpretation EKG Date: 05/18/21 Time: 21:05 Rhythm: NSR [place]: Normal P-Wave: Present QRS: Normal ST-T: Normal QT: Normal Course - Vital Signs Last Recorded V/S: Last Vital Signs Temp 97 F 05/18/21 20:49 Pulse 106 H 05/18/21 20:49 Resp 20 05/18/21 20:49 BP 136/88 05/18/21 20:49 Pulse Ox 90 L 05/18/21 20:49 - Orders/Labs/Meds Orders: Active Orders 24 hr Category Date Time Status Peripheral IV Care [RC] . DIRECTED Care 05/18/21 20:48 Active Abdomen Pelvis wo Cont [CT] Urgent Exams 05/18/21 22:00 Stop Req Venous Doppler Lwr Ext Rt [US] Urgent Exams 05/18/21 21:56 Stop Req Sodium Chloride 0.9% [Saline Flush] Med 05/18/21 20:47 Active 10 ml FLUSH ASDIRECTED PRN Peripheral IV Insertion Adult [OM.PC] Routine Oth 05/18/21 20:47 Ordered Medication Orders Sodium Chloride (Sodium Chloride 0.9% 10 Ml Syringe) 10 ml FLUSH ASDIRECTED PRN PRN Reason: Keep Vein Open Last Admin: 05/18/21 21:21 Dose: 10 ml Documented by: TONY Labs: Laboratory Tests 05/18/21 05/18/21 05/18/21 Range/Units 21:06 21:06 21:06 WBC 13.4 H (5.0-10.0) 10^3/uL RBC 3.78 L (4.2-5.4) 10^6/uL Hgb 11.7 L D (12.0-16.0) g/dL Hct 34.5 L (37.0-47.0) % MCV 91.3 (80-100) fL MCH 31.0 (27.0-34.0) pg MCHC 33.9 (33.0-35.0) g/dL Plt Count 374 D (150-450) 10^3/uL Neut % (Auto) 81.7 H (42.2-75.2) % Lymph % (Auto) 10.1 L (20.5-50.1) % [place] % (Auto) 8.1 H (2-8) % Eos % (Auto) 0.0 L (1.0-3.0) % Baso % (Auto) 0.1 (0.0-1.0) % D-Dimer, Quantitative 1480 H (0-400) ng/mL Sodium 142 (136-145) mmol/L Potassium 3.8 (3.5-5.1) mmol/L Chloride 104 (98-107) mmol/L Carbon Dioxide 25 (21-32) mmol/L Anion Gap 16.8 H (7-13) mEq/L BUN 30 H (7-18) mg/dL Creatinine 1.38 H (0.55-1.02) mg/dL Est Cr Clr Drug Dosing TNP Estimated GFR (MDRD) 37 BUN/Creatinine Ratio 21.7 (No establ ref range) Glucose 88 (70-99) mg/dL Lactic Acid (0.4-2.0) mmol/L Calcium 9.0 (8.5-10.1) mg/dL Total Bilirubin 0.5 (0.2-1.0) mg/dL AST 79 H (15-37) U/L ALT 210 H (14-59) U/L Alkaline Phosphatase 80 (46-116) U/L C-Reactive Protein 5.9 H (0.0-0.9) mg/dL Total Protein 7.5 (6.4-8.2) g/dL Albumin 2.5 L (3.4-5.0) g/dL Globulin 5.0 Albumin/Globulin Ratio 0.50 12/30/21 Range/Units 21:06 WBC (5.0-10.0) 10^3/uL RBC (4.2-5.4) 10^6/uL Hgb (12.0-16.0) g/dL Hct (37.0-47.0) % MCV (80-100) fL MCH (27.0-34.0) pg MCHC (33.0-35.0) g/dL Plt Count (150-450) 10^3/uL Neut % (Auto) (42.2-75.2) % Lymph % (Auto) (20.5-50.1) % [place] % (Auto) (2-8) % Eos % (Auto) (1.0-3.0) % Baso % (Auto) (0.0-1.0) % D-Dimer, Quantitative (0-400) ng/mL Sodium (136-145) mmol/L Potassium (3.5-5.1) mmol/L Chloride (98-107) mmol/L Carbon Dioxide (21-32) mmol/L Anion Gap (7-13) mEq/L BUN (7-18) mg/dL Creatinine (0.55-1.02) mg/dL Est Cr Clr Drug Dosing Estimated GFR (MDRD) BUN/Creatinine Ratio (No establ ref range) Glucose (70-99) mg/dL Lactic Acid 1.7 (0.4-2.0) mmol/L Calcium (8.5-10.1) mg/dL Total Bilirubin (0.2-1.0) mg/dL AST (15-37) U/L ALT (14-59) U/L Alkaline Phosphatase (46-116) U/L C-Reactive Protein (0.0-0.9) mg/dL Total Protein (6.4-8.2) g/dL Albumin (3.4-5.0) g/dL Globulin Albumin/Globulin Ratio Meds: Medications Generic Name Dose Route Start Last Admin Trade Name Alessandra PRN Reason Stop Dose Admin Sodium Chloride 10 ml 05/18/21 20:47 05/18/21 21:21 Sodium Chloride 0.9% 10 Ml Syringe FLUSH 10 ml ASDIRECTED PRN Administration Keep Vein Open Discontinued Medications Generic Name Dose Route Start Last Admin Trade Name Alessandra PRN Reason Stop Dose Admin Sodium Chloride 1,000 mls @ 999 mls/hr 05/18/21 21:21 05/18/21 21:34 Normal Saline IV 05/18/21 22:21 999 mls/hr .BOLUS ONE Administration Sodium Chloride 1,000 mls @ 999 mls/hr 05/18/21 21:51 05/18/21 22:41 Normal Saline IV 05/18/21 22:51 999 mls/hr .BOLUS ONE Administration Iopamidol 100 ml 05/18/21 21:51 05/18/21 22:07 Iopamidol 755 Mg/Ml 100 Ml Bottle IVPUSH 05/18/21 21:52 100 ml ONETIME ONE Administration - Re-Assessments/Exams Free Text/Narrative Re-Assessment/Exam: 05/18/21 23:06 I discussed the lab, exam and ct results with the pt. I explained the viral PNA and absence of a PE. She feels safe to go home. Departure - Departure Time of Disposition: 23:07 Disposition: Home, Self-Care 01 Condition: Good Clinical Impression: Viral pneumonia - Discharge Information *PRESCRIPTION DRUG MONITORING PROGRAM REVIEWED*: Not Applicable *COPY OF PRESCRIPTION DRUG MONITORING REPORT IN PATIENT GEORGE: Not Applicable Forms: ED Department Discharge Additional Instructions: Drink plenty of fluids to maintain hydration. If any new symptoms or concerns devlop contact your primary care facility or return to the ER. Sepsis Event Note (ED) - Evaluation Sepsis Screening Result: No Definite Risk - Focused Exam Vital Signs: Vital Signs Temp Pulse Resp BP Pulse Ox 05/18/21 20:49 97 F 106 H 20 136/88 90 L - My Orders Last 24 Hours: My Active Orders 05/18/21 20:47 Sodium Chloride 0.9% [Saline Flush] 10 ml FLUSH ASDIRECTED PRN Peripheral IV Insertion Adult [OM.PC] Routine 05/18/21 20:48 Peripheral IV Care [RC] . DIRECTED 05/18/21 21:56 Venous Doppler Lwr Ext Rt [US] Urgent 05/18/21 22:00 Abdomen Pelvis wo Cont [CT] Urgent - Assessment/Plan Last 24 Hours: My Active Orders 05/18/21 20:47 Sodium Chloride 0.9% [Saline Flush] 10 ml FLUSH ASDIRECTED PRN Peripheral IV Insertion Adult [OM.PC] Routine 05/18/21 20:48 Peripheral IV Care [RC] . DIRECTED 05/18/21 21:56 Venous Doppler Lwr Ext Rt [US] Urgent 05/18/21 22:00 Abdomen Pelvis wo Cont [CT] Urgent
[2021-05-18] MEDS ORDERED: Sodium Chloride 0.9% 1,000 ML IV ONE ×2 (21:21→21:51)
[2021-05-18 21:37] LABS: ANION GAP 16.8 mEq/L (7-13); CHLORIDE,CL 104 mmol/L (98-107); SODIUM,NA 142 mmol/L (136-145)
[2021-05-18] MEDS ORDERED: Iopamidol 755 Mg/ML 100 ML Bottle IVPUSH ONE (21:51)
--- NOTE | 2021-05-18 22:52 | CT ---
PROCEDURE INFORMATION: Exam: CT Chest With Contrast; Diagnostic Exam date and time: 05/18/2021 10:17 PM Age: 76 years old Clinical indication: Cough and shortness of breath and other: D-dimer 1480; Additional info: SOB, elevated d-dimer TECHNIQUE: Imaging protocol: Diagnostic computed tomography of the chest with contrast. Radiation optimization: All CT scans at this facility use at least one of these dose optimization techniques: automated exposure control; mA and/or kV adjustment per patient size (includes targeted exams where dose is matched to clinical indication); or iterative reconstruction. Contrast material: [id number]; Contrast volume: 80 ml; Contrast route: INTRAVENOUS (IV); COMPARISON: CT Chest wo Cont 05/09/2021 3:13 AM FINDINGS: Lungs: Bilateral multifocal ground-glass infiltrates with crazy paving architecture consistent with acute bilateral viral pneumonia. Pleural spaces: Unremarkable. No pneumothorax. No pleural effusion. Heart: Unremarkable. No cardiomegaly. No pericardial effusion. Pulmonary arteries: No evidence for acute pulmonary embolism Aorta: Unremarkable. No aortic aneurysm. Lymph nodes: Unremarkable. No enlarged lymph nodes. Kidneys and ureters: Edges through the upper abdomen demonstrates a right nephrectomy with possible left hydronephrosis. CT scan of the abdomen pelvis is suggested. Bones/joints: Unremarkable. No acute fracture. Soft tissues: Unremarkable. IMPRESSION: 1. Bilateral multifocal ground-glass infiltrates with crazy paving architecture consistent with acute bilateral viral pneumonia. 2. No evidence for acute pulmonary embolism 3. Images through the upper abdomen demonstrates a right nephrectomy with possible left hydronephrosis. CT scan of the abdomen pelvis is suggested.
== END 2021-05-18 23:26 | disposition home or self-care (01) ==
LOC: DL.ED 20:27
DX: J12.9 Viral pneumonia, unspecified (principal); I10 Essential (primary) hypertension; E03.9 Hypothyroidism, unspecified; Z88.1 Allergy status to other antibiotic agents; Z91.030 Bee allergy status; Z88.8 Allergy status to other drugs, medicaments and biological substances; Z79.899 Other long term (current) drug therapy
CPT/HCPCS: 36415; 71260; 80053; 83605; 85025; 85379; 86140; 93005; 99285; J7030; Q9967; 93010

== ENCOUNTER 2022-01-24 06:57 | Day surgery (SDC) | payer MEDICARE, BC ==
[2022-01-24] MEDS ORDERED: Midazolam 1 MG/ML 2 ML SDV IV ONE (06:58)
[2022-01-24] MEDS ORDERED: Sodium Chloride 0.9% 10 ML Syringe IV ONE (06:58)
[2022-01-24] MEDS ORDERED: Dexamethasone 4 MG/ML SDV IV ONE (06:58)
[2022-01-24] MEDS ORDERED: Phenylephrine 10% Ophth Soln 5 ML Bot EYELF PRN (07:00)
[2022-01-24] MEDS ORDERED: Povidone-Iodine 5% Sterile Ophth Soln 30 ML Bottle EYELF ONE ×2 (07:00→08:22)
[2022-01-24] MEDS ORDERED: Ondansetron 4 MG/2 ML SDV IVPUSH PRN (07:00)
[2022-01-24] MEDS ORDERED: Proparacaine 0.5% Ophth Soln 15 ML Bottle EYELF ONE (07:00)
[2022-01-24] MEDS ORDERED: Cataract Ophth Solution EYELF ONE (07:00)
[2022-01-24] MEDS ORDERED: Sodium Chloride 0.9% 10 ML Syringe FLUSH PRN (07:00)
[2022-01-24] MEDS ORDERED: Acetaminophen/Codeine 300-30 MG Tab PO PRN (07:00)
[2022-01-24] MEDS ORDERED: Acetaminophen 325 MG Tab PO PRN (07:00)
[2022-01-24] MEDS ORDERED: Tropicamide 1% Ophth Soln 15 ML Bottle EYELF ONE (07:00)
[2022-01-24] MEDS ORDERED: Moxifloxacin 0.5% Ophth Soln 3 ML Bottle EYELF ONE (07:00)
[2022-01-24] MEDS ORDERED: Timolol Maleate 0.5% Ophth Soln 5 ML Bottle EYELF ONE (07:00)
[2022-01-24] MEDS ORDERED: Proparacaine 0.5% Ophth Soln 15 ML Bottle ONE (07:34)
[2022-01-24] MEDS ORDERED: Tetracaine HCl/PF 0.5% 4 ML Bottle EYELF ONE (08:20)
[2022-01-24] MEDS ORDERED: Apraclonidine 0.5% Ophth Soln 5 ML Bot EYELF ONE (08:24)
[2022-01-24] MEDS ORDERED: Diclofenac Sodium 0.1% Ophth Soln 5 ML Bottle EYELF ONE (08:25)
[2022-01-24] MEDS ORDERED: Lidocaine 1% 30 ML SDV ONE (08:26)
[2022-01-24] MEDS ORDERED: Dexamethasone/Neomycin/Polymyxin B Ophth Oint 3.5 GM Tube EYELF ONE (08:26)
[2022-01-24 09:41] VITALS: BP 139/117; PULSE 73
[2022-01-24] MEDS ORDERED: Balanced Salt Solution Ophth Irrig 500 ML Bottle IOCULAR ONE (12:26)
[2022-01-24] MEDS ORDERED: Vancomycin 500 MG SDV EYELF ONE (12:27)
[2022-01-24] MEDS ORDERED: Chondroitin Sulfate/Hyaluronate Sodium Ophth Inj 0.75 ML Syringe EYELF ONE (12:29)
== END 2022-01-24 09:35 | disposition home or self-care (01) ==
LOC: DL.SDS 06:57
PROVIDERS: ATTEND Ophthalmology
DX: H25.812 Combined forms of age-related cataract, left eye (principal); I10 Essential (primary) hypertension; F41.9 Anxiety disorder, unspecified; F32.A Depression, unspecified; K21.9 Gastro-esophageal reflux disease without esophagitis; E03.9 Hypothyroidism, unspecified; R73.03 Prediabetes; Z90.710 Acquired absence of both cervix and uterus; Z98.890 Other specified postprocedural states; Z79.890 Hormone replacement therapy; Z79.51 Long term (current) use of inhaled steroids; Z79.899 Other long term (current) drug therapy; Z88.0 Allergy status to penicillin; Z87.891 Personal history of nicotine dependence; Z88.8 Allergy status to other drugs, medicaments and biological substances; Z88.6 Allergy status to analgesic agent; Z91.030 Bee allergy status; Z88.1 Allergy status to other antibiotic agents
CPT/HCPCS: 00142; 66982; A9270; C1780; J1100; J2250; J3370; J3490